=== PATIENT | male | born 1950 | race Two or more races ===

== ENCOUNTER → 2018-11-20 | Outpatient (CLI) | payer OTHER | END | disposition home or self-care (01) | LOC: LAB 09:09 | DX: K86.1 Other chronic pancreatitis (principal) ==

== ENCOUNTER 2018-11-21 09:08 | Outpatient (CLI) | payer OTHER | END 2018-11-21 09:16 | disposition home or self-care (01) | LOC: TOM 09:08 | DX: K86.1 Other chronic pancreatitis (principal); N20.0 Calculus of kidney | CPT/HCPCS: 74177; Q9965 ==